=== PATIENT | female | born 1990 | race African-American/Black ===

== ENCOUNTER 2017-09-18 08:31 | Inpatient (IN) ==
[2017-09-18] MEDS ORDERED: ONDANSETRON 4 MG/2 ML VIAL IV PRN (10:48)
[2017-09-18] MEDS: LACTATED RINGERS 1,000 ML IV SCH ×3 (11:10→15:44)
[2017-09-18 11:22] LABS: Basophils % 0.1 % (0.0-0.8); Eosinophils % 0.3 % (0.00-10.9); Hematocrit 31.2 VOL% (35.7-47.0); Hemoglobin 10.1 GM/DL (12.0-16.0); Immature Granulocytes % 0.8 %; Immature Granulocytes Absolute 0.06 #; Lymphocytes # 1.7 10*3/uL (1.4-4.0); Mean Corpuscular HGB Conc 32.4 GM/DL (32-36); Mean Corpuscular Hemoglobin 25 PG (27-34); Mean Corpuscular Volume 76.7 FL (87-102); Mean Platelet Volume 10.3 FL (9.6-12.0); Monocytes # 0.7 10*3/uL (0.11-0.8); Monocytes % 8.3 % (1.7-12.7); Neutrophils # 5.5 10*3/uL (1.4-7.4); Neutrophils % 69.5 % (38.7-73.9); Platelet Count 245 T/CUMM (130-400); Red Blood Count 4.07 MC/CUMM (3.8-5.5); Red Cell Distribution Width 13.9 % (9.3-17.3); White Blood Count 7.8 T/CUMM (4-12)
[2017-09-18 11:52] LABS: Alanine Aminotransferase 33 U/L (13-56); Albumin 2.7 G/DL (3.4-5.0); Alkaline Phosphatase 157 U/L (45-117); Aspartate Amino Transferase 26 U/L (0-37); Bilirubin,Total < 0.39 MG/DL (0.2-1.0); Blood Urea Nitrogen 7 MG/DL (7-18); Calcium 9.3 MG/DL (8.5-10.1); Glucose 98 MG/DL (74-106); Osmolality,Calculated 274.5 MOS/KG (273-304); Potassium 4.1 MMOL/L (3.5-5.1); Sodium 139 MMOL/L (136-145); Total Protein 6.9 G/DL (6.4-8.3); Uric Acid 5.8 MG/DL (2.6-6.0)
[2017-09-18] MEDS ORDERED: CITRIC ACID/SODIUM CITRATE 30 ML UDCUP PO ONE (12:24)
[2017-09-18] MEDS ORDERED: FAMOTIDINE 20 MG/2 ML VIAL IV ONE (12:28)
[2017-09-18] MEDS ORDERED: ceFAZolin 2,000 MG in PREMIX 1 EACH IV ONE (12:31)
[2017-09-18] MEDS ORDERED: OXYTOCIN/LR 30 UNIT/1,000 ML BAG IV ONE (12:46)
[2017-09-18] MEDS ORDERED: OXYTOCIN 10 UNIT/ML VIAL IM ONE (12:47)
[2017-09-18] MEDS ORDERED: BUPIVACAINE SPINAL 0.75% 2 ML AMP SPINAL ONE (13:16)
[2017-09-18] MEDS ORDERED: GLUCAGON 1 MG VIAL IM PRN (14:22)
[2017-09-18] MEDS ORDERED: DEXTROSE 50% 25 GM/50 ML VIAL IV PRN (14:22)
[2017-09-18] MEDS ORDERED: MORPHINE 10 MG/10 ML VIAL ONE (14:23)
[2017-09-18] MEDS ORDERED: PHENYLEPHRINE 1 MG/10 ML SYRINGE IV ONE (14:23)
[2017-09-18 14:25] LABS: Cord Arterial Blood HCO3 21.3 MMOL/L
[2017-09-18 14:26] LABS: Cord Venous Blood HCO3 24.1 MMOL/L; Cord Venous Blood PCO2 42.6 MMHG; Cord Venous Blood PO2 30.8 MMHG
[2017-09-18 14:29] LABS: Apearance,Urine CLEAR (Clear); Bilirubin,Urine Negative (Negative); Blood, Urine Negative (Negative); Glucose,Urine (UA) Negative (Negative); Ketones,Urine 5 mg/dL (Negative); Mucus,Urine Occasional /LPF (Occasional); Nitrite,Urine Negative (Negative); Protein,Urine Negative; RBC,Urine <1 /HPF (0-4); Squamous Epithelial Cell,Urine Occasional /HPF (0-10); Urine Color Yellow (Yellow); Urine Specific Gravity 1.011 (1.001-1.035); Urine Urobilinogen < 2.0 EU/DL (0.2-1.0); WBC,Urine 1 /HPF (0-6)
[2017-09-18] MEDS ORDERED: FLUTICASONE 50 MCG NASAL SPRAY 16 GM BOTTLE BOTH NARES SCH (14:30)
[2017-09-18] MEDS ORDERED: diphenhydrAMINE 50 MG/1 ML VIAL IV PRN (15:02)
[2017-09-18] MEDS ORDERED: hydrOXYzine HCL 25 MG/1 ML VIAL IM PRN (15:02)
[2017-09-18] MEDS ORDERED: MEPERIDINE 25 MG/1 ML VIAL IV ONE (15:06)
[2017-09-18] MEDS ORDERED: MEPERIDINE 25 MG/1 ML VIAL ONE (15:15)
[2017-09-18] MEDS ORDERED: SODIUM CHLORIDE 0.9% 1,000 ML IV SCH (15:30)
[2017-09-18] MEDS: INSULIN REGULAR 100 UNIT/ML SUBCUT SCH ×2 (18:10→23:34)
[2017-09-18] MEDS ORDERED: OXYTOCIN/LR 20 UNIT/1,000 ML BAG IV ONE (18:11)
[2017-09-18] MEDS ORDERED: ALBUTEROL 2.5 MG/3 ML NEB RESP TX PRN (19:00)
[2017-09-18 22:00] LABS: Basophils % 0.1 % (0.0-0.8); Eosinophils % 0.2 % (0.00-10.9); Hematocrit 30.2 VOL% (35.7-47.0); Hemoglobin 9.3 GM/DL (12.0-16.0); Immature Granulocytes % 0.7 %; Immature Granulocytes Absolute 0.07 #; Lymphocytes # 1.8 10*3/uL (1.4-4.0); Lymphocytes % 17.4 % (21.3-54.2); Mean Corpuscular HGB Conc 30.8 GM/DL (32-36); Mean Corpuscular Hemoglobin 25 PG (27-34); Mean Corpuscular Volume 79.9 FL (87-102); Mean Platelet Volume 9.8 FL (9.6-12.0); Monocytes # 0.8 10*3/uL (0.11-0.8); Monocytes % 7.7 % (1.7-12.7); Neutrophils # 7.7 10*3/uL (1.4-7.4); Neutrophils % 73.9 % (38.7-73.9); Platelet Count 201 T/CUMM (130-400); Red Blood Count 3.78 MC/CUMM (3.8-5.5); Red Cell Distribution Width 13.9 % (9.3-17.3); White Blood Count 10.4 T/CUMM (4-12)
[2017-09-18] MEDS: ceFAZolin 1,000 MG in SYRINGE 1 EACH IV SCH (22:14)
[2017-09-18] MEDS: ONDANSETRON 4 MG/2 ML VIAL IV PRN (22:33)
[2017-09-18] MEDS: HYDROmorphone 2 MG/1 ML VIAL IV PRN (22:37)
[2017-09-19] MEDS ORDERED: oxyCODONE/ACETAMINOPHEN 5-325 MG TABLET PO PRN ×2 (00:35→22:49)
[2017-09-19] MEDS ORDERED: MAGNESIUM HYDROXIDE SUSP 30 ML UDCUP PO PRN (00:36)
[2017-09-19] MEDS ORDERED: BISACODYL 10 MG SUPP RECTAL PRN (00:36)
[2017-09-19] MEDS: HYDROmorphone 2 MG/1 ML VIAL IV PRN (01:57)
[2017-09-19] MEDS: LACTATED RINGERS 1,000 ML IV SCH (02:02)
[2017-09-19] MEDS: ceFAZolin 1,000 MG in SYRINGE 1 EACH IV SCH (05:08)
[2017-09-19 05:35] LABS: Basophils % 0.2 % (0.0-0.8); Eosinophils # 0.1 10*3/uL (0.0-0.87); Eosinophils % 0.5 % (0.00-10.9); Hemoglobin 8.9 GM/DL (12.0-16.0); Immature Granulocytes % 0.6 %; Immature Granulocytes Absolute 0.06 #; Lymphocytes # 1.6 10*3/uL (1.4-4.0); Lymphocytes % 15.2 % (21.3-54.2); Mean Corpuscular HGB Conc 30.7 GM/DL (32-36); Mean Corpuscular Hemoglobin 24 PG (27-34); Mean Corpuscular Volume 78.4 FL (87-102); Mean Platelet Volume 10.3 FL (9.6-12.0); Monocytes % 9.3 % (1.7-12.7); Neutrophils # 7.8 10*3/uL (1.4-7.4); Neutrophils % 74.2 % (38.7-73.9); Platelet Count 200 T/CUMM (130-400); Red Cell Distribution Width 13.7 % (9.3-17.3); White Blood Count 10.4 T/CUMM (4-12)
[2017-09-19 06:03] LABS: Band Neutrophils 2 % (0-10); Eosinophils 1 % (0-10); Lymphocytes 19 % (20-55); Segmented Neutrophils 76 % (50-85); Total Cells Counted 100
[2017-09-19 06:04] LABS: Hypochromasia 1+
[2017-09-19] MEDS: INSULIN REGULAR 100 UNIT/ML SUBCUT SCH ×3 (06:24→21:00)
[2017-09-19] MEDS: IBUPROFEN 800 MG TABLET PO PRN ×3 (06:38→19:26)
[2017-09-19] MEDS: oxyCODONE/ACETAMINOPHEN 5-325 MG TABLET PO PRN ×3 (06:39→19:27)
[2017-09-19] MEDS: DOCUSATE SODIUM 100 MG CAPSULE PO SCH ×2 (09:39→19:29)
[2017-09-19] MEDS: FERROUS SULFATE 325 MG TABLET PO SCH ×2 (09:39→19:28)
[2017-09-19] MEDS ORDERED: diphenhydrAMINE CAP 25 MG CAPSULE PO PRN (15:39)
[2017-09-19] MEDS: SIMETHICONE CHEW 80 MG TABLET PO PRN (19:28)
[2017-09-19] MEDS: ONDANSETRON 4 MG/2 ML VIAL IV PRN (23:00)
[2017-09-20] MEDS: oxyCODONE/ACETAMINOPHEN 5-325 MG TABLET PO PRN ×2 (00:15→06:06)
[2017-09-20] MEDS: FERROUS SULFATE 325 MG TABLET PO SCH ×2 (00:45→10:47)
[2017-09-20] MEDS: DOCUSATE SODIUM 100 MG CAPSULE PO SCH ×2 (00:46→10:47)
[2017-09-20] MEDS: IBUPROFEN 800 MG TABLET PO PRN (06:06)
[2017-09-20] MEDS: SIMETHICONE CHEW 80 MG TABLET PO PRN (06:10)
[2017-09-20 07:28] VITALS: BP 112/66
[2017-09-20] MEDS: INSULIN REGULAR 100 UNIT/ML SUBCUT SCH ×3 (13:05→13:06)
== END 2017-09-20 11:45 | disposition home or self-care (01) | DRG 540 ==
LOC: N.ULTRA 08:31 → N.LD 08:34 → N.OB 16:55
PROVIDERS: ADMIT Obstetrics & Gynecology; ATTEND Obstetrics & Gynecology